=== PATIENT | male | born 1960 | race Caucasian/White ===

== ENCOUNTER 2024-11-10 06:31 | Day surgery (SDC) | payer MEDICARE, OTHER ==
[~2024-11-10] VITALS: Ht 180.3 cm; Wt 96.4 kg
[2024-11-10] VITALS (7 sets, daily range): BP systolic 113–136; BP diastolic 75–95
[~2024-11-10 06:31] MED LIST: ATOR20 PO; HYDCHL25 PO; LOSA50 PO; METO100ER PO
--- NOTE | 2024-11-10 06:55 | NUR ---
11/10/24 0655 Shirley Gomez CONFIRMED AND REVIEWED H&P, MEDCICATIONS, ALLERGIES, MEDICAL HISTORY, RESPIRATORY HISTORY, VITAL SIGNS, 3-LEAD EKG, CONSENTS, AND PHYSICIAN ORDERS. PATIENT CONFIRMS NPO STATUS AND AGREES WITH SCHEDULED PROCEDURE. MONITOR INTACT WITH CONTINUOUS PULSE OXIMETRY, CAPNOGRAPHY, 3-LEAD EKG, INTERMITTENT BP. SUPPLEMENTAL O2 TO BE TITRATED THROUGHOUT PROCEDURE TO MAINTAIN O2 SATURATION ABOVE 90%. PATIENT DETERMINED TO BE ASA APPROPRIATE FOR PROPOFOL SEDATION PRIOR TO START OF PROCEDURE BY DR. RAMIREZ.
--- NOTE | 2024-11-10 07:04 | NUR ---
History, Chart, Medications and Allergies reviewed before start of procedure. Pre-Op teaching done. Pt verbalizes understanding. Patient confirms NPO status and agrees with scheduled surgery. Patient states colon prep results light yellow.
--- NOTE | 2024-11-10 08:19 | NUR ---
Patient up to Ambulate independently. Gait steady. Discharge instructions reviewed with patient. Patient verbalizes understanding. Copy given to patient to take home, [facility]. Patient States Post-Procedure ride home has been arranged. Discharged via wheelchair to private car for ride home. PT TOLERATING PO, REPORTS READY TO GO HOME.
== END 2024-11-10 08:20 | disposition home or self-care (01) ==
LOC: ORSCMMR 06:31 → ORD 07:30 → ORSCMMR 08:20
DX: Z12.11 Encounter for screening for malignant neoplasm of colon (principal); D12.4 Benign neoplasm of descending colon; K62.1 Rectal polyp; Z86.0100 Personal history of colon polyps, unspecified; I10 Essential (primary) hypertension; E78.00 Pure hypercholesterolemia, unspecified; Z79.899 Other long term (current) drug therapy
CPT/HCPCS: 88305; J2704; J7120